=== PATIENT | male | born 1985 | race Caucasian/White ===

== ENCOUNTER 2019-03-13 10:07 | Emergency (ER) | payer SELFPAY ==
--- NOTE | 2019-03-13 12:29 | Emergency Department Report ---
Vomiting/Diarrhea - HPI Duration: Today Severity: mild Nausea/Vomiting Severity: Mild Diarrhea Severity: None Pain Severity: None Symptoms: Yes Able to Tolerate Fluids, No Watery Diarrhea, No Bloody diarrhea, No Fever, No Recent Unusual Foods, No Recent Untreated Water, No Recent use of Antibiotics, No Family w/ Similar Symptoms, No Contacts w/ Similar Symptoms, No Rash, No Hematuria, No Recent URI Symptoms Other History: This is a 34-year-old male that presents to the emergency room after a syncopal episode this morning. Patient states he initially felt dizzy prior to episode. He denies taking anything prior. Past medical history of depression with out current treatment or follow-up with psychiatrist or primary care. He also reported some nausea and vomiting. Reports feeling depressed ever since his mom 2 weeks ago. States he returned to work on yesterday and have not felt right ever since. He reports nausea continues and dizziness resolved. He is unsure of hitting head but denies headache. He denies suicidal ideation, homicide ideation, diarrhea, fever, chills, chest pain, shortness of breath. <EVER WHYTE - Last Filed: 03/13/19 14:25> <ASHLEY IRVING P - Last Filed: 03/25/19 01:51> - [facility] Chief Complaint: Nausea/Vomiting/Diarrhea Stated Complaint: PASSED OUT/CHECK UP Time Seen by Provider: 03/13/19 10:49 ED Review of Systems ROS: Stated complaint: PASSED OUT/CHECK UP Other details as noted in HPI Constitutional: denies: chills, fever ENT: denies: ear pain, throat pain Respiratory: denies: cough, shortness of breath, wheezing Cardiovascular: denies: chest pain, palpitations Gastrointestinal: nausea, vomiting. denies: abdominal pain, diarrhea Skin: denies: rash, lesions Neurological: vertigo. denies: headache, weakness, paresthesias Psychiatric: denies: anxiety <EVER WHYTE - Last Filed: 03/13/19 14:25> ROS: Stated complaint: PASSED OUT/CHECK UP Other details as noted in HPI <ASHLEY IRVING P - Last Filed: 03/25/19 01:51> ED Past Medical Hx - Past Medical History Previous Medical History?: No - Surgical History Past Surgical History?: No - Social History Smoking Status: Never Smoker Substance Use Type: None <EVER WHYTE - Last Filed: 03/13/19 14:25> <ASHLEY IRVING - Last Filed: 03/25/19 01:51> - Medications Home Medications: Home Medications Medication Instructions Recorded Confirmed Last Taken Type Ondansetron [Zofran Odt] 4 mg PO Q8HR PRN #15 tab.rapdis 03/13/19 Unknown Rx Vomiting Diarrhea Exam - Exam General: Vital signs noted. No distress. Alert and acting appropriately. HEENT: Yes Moist Mucous Membranes, No Pharyngeal Erythema, No Pharyngeal Exudates, No Rhinorrhea, No Conjuctival Injection, No Frontal Tenderness, No Maxillary Tenderness Neck: No Adenopathy, No Rigidity Lungs: Yes Clear Lung Sounds, Yes Good Air Exchange, No Wheezes, No Stridor, No Cough, No Nasal Flaring, No Retractions, No Use of Accessory Muscles Heart exam: Regular: Yes, Murmur: No, Tachycardia: No Abdomen: Tenderness: No, Peritoneal Signs: No, Distention: No, Hyperactive Bowel sounds: No Skin exam: Rash: No, Edema: No, Normal turgor: Yes Neurologic: Alert and oriented, no deficits. Musculoskeletal: Unremarkable. <MANUEL WHYTEISHCora GARCIA - Last Filed: 03/13/19 14:25> - Exam General: Vital signs noted. No distress. Alert and acting appropriately. Neurologic: Alert and oriented, no deficits. Musculoskeletal: Unremarkable. <ASHLEY IRVING P - Last Filed: 03/25/19 01:51> ED Course Vital Signs 03/13/19 10:12 Temperature 98.4 F Pulse Rate 84 Respiratory 14 Rate Blood Pressure 127/85 O2 Sat by Pulse 97 Oximetry <WHYTEMANUEL PETERSONBRENT DEYBAUDILIO - Last Filed: 03/13/19 14:25> Vital Signs 03/13/19 03/13/19 10:12 14:47 Temperature 98.4 F Pulse Rate 84 66 Respiratory 14 18 Rate Blood Pressure 127/85 Blood Pressure 108/68 [Left] O2 Sat by Pulse 97 97 Oximetry <ASHLEY IRVING P - Last Filed: 03/25/19 01:51> ED Medical Decision Making - Lab Data Result diagrams: 03/13/19 12:35 03/13/19 12:35 Lab Results 03/13/19 03/13/19 03/13/19 Range/Units 12:35 12:35 13:12 WBC 7.5 (4.5-11.0) K/mm3 RBC 4.75 (3.65-5.03) M/mm3 Hgb 14.8 (11.8-15.2) gm/dl Hct 42.4 (35.5-45.6) % MCV 89 (84-94) fl MCH 31 (28-32) pg MCHC 35 H (32-34) % RDW 12.7 L (13.2-15.2) % Plt Count 325 (140-440) K/mm3 Sodium 142 (137-145) mmol/L Potassium 4.0 (3.6-5.0) mmol/L Chloride 100.2 (98-107) mmol/L Carbon Dioxide 31 H (22-30) mmol/L Anion Gap 15 mmol/L BUN 14 (9-20) mg/dL Creatinine 0.7 L (0.8-1.5) mg/dL Estimated GFR > 60 ml/min BUN/Creatinine Ratio 20 % Glucose 105 H (75-100) mg/dL Calcium 9.4 (8.4-10.2) mg/dL Total Bilirubin 0.50 (0.1-1.2) mg/dL AST 15 (5-40) units/L ALT 12 (7-56) units/L Alkaline Phosphatase 87 (35-129) units/L Total Protein 7.6 (6.3-8.2) g/dL Albumin 4.4 (3.9-5) g/dL Albumin/Globulin Ratio 1.4 % Urine Color Straw (Yellow) Urine Turbidity Clear (Clear) Urine pH 9.0 H (5.0-7.0) Ur Specific [place] 1.009 (1.003-1.030) Urine Protein <15 mg/dl (Negative) mg/dL Urine Glucose (UA) Neg (Negative) mg/dL Urine Ketones Neg (Negative) mg/dL Urine Blood Neg (Negative) Urine Nitrite Neg (Negative) Urine Bilirubin Neg (Negative) Urine Urobilinogen < 2.0 (<2.0) mg/dL Ur Leukocyte Esterase Neg (Negative) Urine WBC (Auto) < 1.0 (0.0-6.0) /HPF Urine RBC (Auto) < 1.0 (0.0-6.0) /HPF - EKG Data -: No EKG Interpreted by Me (EKG interpreted by attending with no previous EKG) EKG shows normal: sinus rhythm Rate: normal - Medical Decision Making Patient is stable and examined by me. Vitals are stable. Past medical history of depression. Obtained a urinalysis, CBC, & CMP. All labs are unremarkable. No acute signs of distress noted. Given Zofran while in the ER. Observation for 2 hours with no signs of distress. By mouth trial tolerated. Denies dizziness and headache. On focal exam no signs of head or neck trauma. EKG interpreted by attending, normal sinus rhythm. Referral to Primary Care for continued care. Patient agrees to ED plan of care. Follow up with PCP in 2-3 days. <EVER WHYTE - Last Filed: 03/13/19 14:25> - Lab Data Result diagrams: 03/13/19 12:35 03/13/19 12:35 - Medical Decision Making Attestation: Available for consultation <ASHLEY IRVING P - Last Filed: 03/25/19 01:51> Critical care attestation.: If time is entered above; I have spent that time in minutes in the direct care of this critically ill patient, excluding procedure time. <EVER WHYTE - Last Filed: 03/13/19 14:25> Critical care attestation.: If time is entered above; I have spent that time in minutes in the direct care of this critically ill patient, excluding procedure time. <ASHLEY IRVING P - Last Filed: 03/25/19 01:51> ED Disposition Is pt being admited?: No Time of Disposition: 14:36 <EVER WHYTE - Last Filed: 03/13/19 14:25> Is pt being admited?: No <ASHLEY IRVING P - Last Filed: 03/25/19 01:51> Clinical Impression: Nausea and vomiting in adult Disposition: DC-01 TO HOME OR SELFCARE Condition: Stable Instructions: Syncope (ED) Additional Instructions: Follow up with a primary care doctor from the referral list below. If you have worsening symptoms return to the emergency room. Prescriptions: Ondansetron [Zofran Odt] 4 mg PO Q8HR PRN #15 tab.rapdis PRN Reason: Nausea And Vomiting Referrals: [facility] [Outside] - 3-5 Days [facility] [Outside] - 3-5 Days [facility] [Outside] - 3-5 Days Forms: Work/School Release Form(ED)
[2019-03-13] MEDS ORDERED: ONDANSETRON 4 MG ODT TAB PO ONE (12:32)
[2019-03-13 13:00] LABS: Hematocrit 42.4 % (35.5-45.6); Hemoglobin 14.8 gm/dl (11.8-15.2); Mean Corpuscular HGB Conc 35 % (32-34); Mean Corpuscular Volume 89 fl (84-94); Platelet Count 325 K/mm3 (140-440); Red Blood Count 4.75 M/mm3 (3.65-5.03); Red Cell Distribution Width 12.7 % (13.2-15.2)
[2019-03-13 13:16] LABS: Alanine Aminotransferase 12 units/L (7-56); Albumin 4.4 g/dL (3.9-5); BUN/Creatinine Ratio 20; Blood Urea Nitrogen 14 mg/dL (9-20); Calcium 9.4 mg/dL (8.4-10.2); Hemolysis Index 3
[2019-03-13 14:21] LABS: Bilirubin,Urine NEG (Negative); Blood,Urine NEG (Negative); Color,Urine Straw (Yellow); Protein,Urine <15 mg/dL mg/dL (Negative); RBC,Urine < 1.0 /HPF (0.0-6.0); Urobilinogen,Urine < 2.0 mg/dL (<2.0); WBC,Urine < 1.0 /HPF (0.0-6.0)
[2019-03-13 14:48] VITALS: BP 108/68
== END 2019-03-13 14:46 | disposition home or self-care (01) ==
LOC: ED 10:07
DX: R55 Syncope and collapse (principal); R11.2 Nausea with vomiting, unspecified
CPT/HCPCS: 36415; 80053; 81001; 85027; 93005; 93010; Q0162